=== PATIENT | male | born 1975 | race Caucasian/White ===

== ENCOUNTER 2018-11-19 11:14 | Emergency (ER) | payer SELFPAY ==
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
[2018-11-19] MEDS ORDERED: Lidocaine 2% EPI 1:200000 MPF*10-20 ML VIAL ONE (12:43)
[2018-11-19] MEDS ORDERED: Ibuprofen TAB* 800 MG PO ONE (13:01)
[2018-11-19] MEDS ORDERED: Bacitracin OINTMENT* 0.5% 0.5 oz TUBE ONE (13:09)
[2018-11-19] MEDS ORDERED: Bacitracin OINTMENT* 0.5% 0.5 oz TUBE TOPICAL ONE (13:10)
[2018-11-19 13:24] VITALS: BP 138/72
== END 2018-11-19 13:23 | disposition home or self-care (01) ==
LOC: ED 11:14
DX: S01.01XA Laceration without foreign body of scalp, initial encounter (principal); S00.93XA Contusion of unspecified part of head, initial encounter; W27.8XXA Contact with other nonpowered hand tool, initial encounter; Y92.9 Unspecified place or not applicable; Y93.89 Activity, other specified; Z88.0 Allergy status to penicillin
CPT/HCPCS: 12001; 12002; 70450; 99282; A9270-GY

== ENCOUNTER → 2018-11-30 15:20 | Emergency (ER) | payer SELFPAY ==
[2018-11-30 15:28] VITALS: BP 129/81
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
== END | disposition home or self-care (01) ==
LOC: ED 15:20
DX: Z48.02 Encounter for removal of sutures (principal); S01.91XD Laceration without foreign body of unspecified part of head, subsequent encounter; X58.XXXD Exposure to other specified factors, subsequent encounter
CPT/HCPCS: 99282